=== PATIENT | female | born 1995 | race African-American/Black ===

== ENCOUNTER 2023-07-24 20:48 | Emergency (ER) | payer MEDICAID ==
[~2023-07-24] VITALS: Ht 152.4 cm; Wt 58.1 kg
[2023-07-24 21:02] VITALS: BP 106/64; TEMP 98.9; O2SAT 100
[2023-07-24] MEDS ORDERED: CLINDAMYCIN 900 MG/6 ML VIAL ONE (21:14)
[2023-07-24] MEDS ORDERED: AMOX-430 PO (21:18)
[2023-07-24] MEDS: CLINDAMYCIN 900 MG/6 ML VIAL IM ONE (21:21)
== END 2023-07-24 21:24 | disposition home or self-care (01) ==
LOC: ER 20:57
DX: S60.411A Abrasion of left index finger, initial encounter (principal); W55.01XA Bitten by cat, initial encounter; Y93.89 Activity, other specified; Y92.89 Other specified places as the place of occurrence of the external cause; Y99.8 Other external cause status
CPT/HCPCS: 99283; 96372; J3490

== ENCOUNTER 2023-07-31 18:53 | Emergency (ER) | payer MEDICAID ==
[~2023-07-31] VITALS: Ht 152.4 cm; Wt 58.1 kg
[~2023-07-31 18:53] MED LIST: AMOX-430 PO
[2023-07-31 19:54] VITALS: BP 108/52; TEMP 98.2; O2SAT 100
[2023-07-31] MEDS: LIDOCAINE HCL/PF 1% 30 ML VIAL TP ONE (20:50)
[2023-07-31] MEDS ORDERED: DOXY100T2 PO (21:27)
== END 2023-07-31 22:14 | disposition home or self-care (01) ==
LOC: ER 18:57
DX: L02.511 Cutaneous abscess of right hand (principal); Z60.2 Problems related to living alone
CPT/HCPCS: 99284; 26010; J3490; A6403

== ENCOUNTER 2023-09-07 01:08 | Emergency (ER) | payer MEDICAID ==
[~2023-09-07] VITALS: Ht 152.4 cm; Wt 59.0 kg
[~2023-09-07 01:08] MED LIST changes: +DOXY100T2 PO
[2023-09-07 01:37] VITALS: BP 102/50; TEMP 98; O2SAT 98
[2023-09-07] MEDS ORDERED: CLIN150C16 PO (02:11)
== END 2023-09-07 02:40 | disposition home or self-care (01) ==
LOC: ER 01:11
DX: M79.89 Other specified soft tissue disorders (principal); W55.01XD Bitten by cat, subsequent encounter; Z60.2 Problems related to living alone